=== PATIENT | female | born 1980 | race African-American/Black ===

== ENCOUNTER 2016-05-18 10:35 | Day surgery (SDC) | payer OTHER ==
[2016-05-16 15:53] VITALS: BMI 26.6
[2016-05-18] MEDS ORDERED: PROPOFOL 20 ML ONE ×2 (12:03)
[2016-05-18] MEDS ORDERED: LIDOCAINE HCL 2% (20ML MULTI-DOSE VIAL) NR ONE (12:03)
[2016-05-18] MEDS ORDERED: MIDAZOLAM HCL 2 MG/2 ML SINGLE DOSE VIAL ONE (12:03)
[2016-05-18] MEDS ORDERED: LIDOCAINE HCL 1%, 10 MG/ML (20ML VIAL) IJ ONE ×2 (12:41)
[2016-05-18] MEDS ORDERED: KETOROLAC TROMETHAMINE 30 MG/1 ML VIAL ONE (12:43)
[2016-05-18] MEDS ORDERED: ONDANSETRON 4 MG/2 ML VIAL IVPUSH PRN (12:59)
[2016-05-18] MEDS ORDERED: oxyCODONE HCL 5 MG TABLET PO PRN (12:59)
[2016-05-18] MEDS ORDERED: ACETAMINOPHEN 1000 MG/100 ML VIAL (NON FORMULARY) IVPB PRN (13:00)
[2016-05-18] MEDS ORDERED: LACTATED RINGERS SOLUTION 1,000 ML IV SCH (13:00)
[2016-05-18 14:14] VITALS: TEMP 98
[2016-05-18 15:52] VITALS: BP 111/80; PULSE 64
--- NOTE | 2016-05-19 09:23 | OP ---
DATE OF OPERATION: 05/18/2016 PREOPERATIVE DIAGNOSIS: Left breast mass. POSTOPERATIVE DIAGNOSIS: Left breast mass. PROCEDURE: Left breast excision of mass. SURGEON: Manju Phillips MD ANESTHESIA: Local and IV sedation. ESTIMATED BLOOD LOSS: Minimal. COMPLICATIONS: None. DISPOSITION: Stable. INDICATIONS FOR PROCEDURE: Patient was brought in with a palpable mass in the left breast 8:30 location 2cm from for the nipple of which she had a needle biopsy last year, and it was benign. However, because of increasing in size, she was worried, and we decided to go ahead and excise this. The procedure was discussed with all the questions answered. PROCEDURE IN DETAIL: Patient was brought to [facility], taken into the operating room, and after IV sedation, the left breast was prepped in the usual sterile fashion. The area in the lower inner left breast was anesthetized with 1% lidocaine without epinephrine. A periareolar incision was made in the inner left breast, and the palpable mass was excised en bloc and sent to Pathology for permanent section. Hemostasis was assured with electrocautery. The parenchyma was approximated with interrupted 2-0 Vicryl. Skin approximated with interrupted 3-0 Vicryl and running 4-0 Prolene. A sterile dressing with Tegaderm and 4x4s was applied. She tolerated the procedure well and was taken to the recovery room in good condition. Esther [id number] MTDD
--- NOTE | 2016-05-22 16:08 | PATH ---
Surgical Pathology Report Patient Name: BETH DAVILA [facility]. Rec. #: [id number] /Age/Gender: 1980 (Age: 35) / F Account: [id number] Location: [facility] Taken: 05/18/2016 Received: 05/18/2016 Reported: 05/22/2016 Physicians: Manju Phillips M.D. Specimen(s) Received LEFT BREAST MASS EXCISION Clinical History Palpable mass, probably benign Final Diagnosis Breast, left, mass, excision: phyllodes tumor, borderline (LOW GRADE). Tumor size: 2.0 cm. Mitotic rate: up to 3-4/10 HPF. Surgical resection margin: Tumor appears completely excised. Comment: The sections show a biphasic fibroepithelial proliferation with areas of stromal expansion with periglandular stromal condensation comprised of spindle shaped cells with mild to moderate cytological atypia. Mitotic rate is up to 3-4/10 HPF. Necrosis is not identified. The tumor appears completely excised. Electronically Signed Nura Pimentel M.D. Gross Description Received in formalin, labeled "left breast excision" is a 3.5 x 2.8 x 2.0 cm fernandez-yellow, irregular, unoriented portion of fibrofatty tissue. Sectioning reveals a 2.0 cm in greatest dimension fernandez, well circumscribed, rubbery mass. No areas of hemorrhage or necrosis are identified. The specimen is entirely and sequentially submitted in 7 cassettes. Time to fixation:<1h Total formalin fixation time:~ 8h /05/18/201605/18/2016
== END 2016-05-18 15:53 | disposition home or self-care (01) ==
LOC: JASU-SURG 10:35
PROVIDERS: ATTEND Surgery
PROC: 0HBU0ZX Excision of Left Breast, Open Approach, Diagnostic (ICD-10-PCS; principal; 2016-05-18 12:00)
DX: D48.62 Neoplasm of uncertain behavior of left breast (principal)
CPT/HCPCS: 84703; 88307-TC; 94760

== ENCOUNTER 2016-06-19 20:06 | Emergency (ER) | payer OTHER ==
[2016-06-19 20:16] VITALS: BP 118/57; PULSE 86; TEMP 98.1; BMI 26.6
[2016-06-19] MEDS ORDERED: predniSONE 20 MG TABLET (UD) PO ONE (20:50)
[2016-06-19] MEDS ORDERED: guaiFENesin/CODEINE 5 ML UNIT-DOSE CUPS PO ONE ×2 (20:50→20:55)
[2016-06-19] MEDS: ALBUTEROL SO4 2.5/IPRATROPIUM 0.5 INH SOL 3 ML VIAL.NEB. NEB SCH ×2 (20:52→21:11)
--- NOTE | 2016-06-19 20:56 | PDOC ---
History of Present Illness - General Chief Complaint: Respiratory Stated Complaint: Cough Time Seen by Provider: 06/19/16 20:17 History Source: Patient - History of Present Illness Timing/Duration: reports: week Associated Symptoms: reports: cough, shortness of breath, wheezing. denies: fever/chills Past History - Past Medical History Allergies/Adverse Reactions: Allergies Allergy/AdvReac Type Severity Reaction Status Date / Time procaine HCl [From Novocain] Allergy Unknown Verified 06/19/16 20:13 cherries Allergy Uncoded 06/19/16 20:13 Home Medications: Ambulatory Orders Albuterol Sulfate Inhaler - [Ventolin HFA Inhaler -] 1 - 2 inh PO Q4H #1 inhaler 06/19/16 Guaifenesin AC [Robitussin AC] 10 ml PO Q4H #118 ml MDD 60ml 06/19/16 Prednisone [Deltasone -] 40 mg PO DAILY #8 tablet 06/19/16 Anemia: No Asthma: No Cancer: No Cardiac Disorders: No CVA: No COPD: No CHF: No Dementia: No Diabetes: No GI Disorders: No Disorders: No HTN: No Hypercholesterolemia: No Liver Disease: No Seizures: No Thyroid Disease: No - Immunization History Immunization Up to Date: Yes - Psycho/Social/Smoking Cessation Hx Anxiety: No Suicidal Ideation: No Smoking History: Current every day smoker Have you smoked in the past 12 months: Yes Number of Cigarettes Smoked Daily: 3 Information on smoking cessation initiated: Yes 'Breaking Loose' booklet given: 06/19/16 Hx Alcohol Use: No Drug/Substance Use Hx: No Substance Use Type: Alcohol Review of Systems - Review of Systems Constitutional: No: Fever Respiratory: Yes: Cough, Shortness of Breath, Wheezing Cardiac (ROS): Yes: Chest Pain *Physical Exam - Vital Signs Last Vital Signs Temp Pulse Resp BP Pulse Ox 98.1 F 86 18 118/57 98 06/19/16 20:14 06/19/16 20:14 06/19/16 20:14 06/19/16 20:14 06/19/16 20:14 - Physical Exam General Appearance: Yes: Appropriately Dressed. No: Apparent Distress HEENT: positive: Normal ENT Inspection, Normal Voice. negative: Scleral Icterus (R), Scleral Icterus (L) Neck: positive: Supple. negative: Lymphadenopathy (R), Lymphadenopathy (L) Respiratory/Chest: positive: Lungs Clear, Normal Breath Sounds. negative: Respiratory Distress, Wheezing Cardiovascular: positive: Regular Rate, S1, S2 Integumentary: positive: Dry, Warm Neurologic: positive: Fully Oriented, Alert, Normal Mood/Affect Medical Decision Making - Medical Decision Making 06/19/16 20:51 36-year-old female history of asthma in childhood, states she's only had one flare in adulthood, does not have any medication at home, currently smokes, here with non-productive cough with pleuritic chest pain 1 week. Over the past several days, developed shortness of breath and tightness similar to her asthma. No fever or chills. Patient well-appearing and stable in ED with clear chest/lungs. Nebs and steroids in progress. Anticipate discharge with prednisone burst and refill of asthma pump 06/19/16 20:56 06/19/16 21:41 Patient improved with neb treatment. Lung remains clear. Discharge with Pred burst and refill of alb pump *DC/Admit/Observation/Transfer Diagnosis at time of Disposition: Asthma attack URI (upper respiratory infection) Qualifiers: URI type: unspecified viral URI Qualified Code(s): J06.9 - Acute upper respiratory infection, unspecified - Discharge Dispostion Disposition: HOME Condition at time of disposition: Improved - Prescriptions Prescriptions: Prednisone [Deltasone -] 40 mg PO DAILY #8 tablet Guaifenesin AC [Robitussin AC] 10 ml PO Q4H #118 ml MDD 60ml Albuterol Sulfate Inhaler - [Ventolin HFA Inhaler -] 1 - 2 inh PO Q4H #1 inhaler - Referrals Referrals: Karina Holloway [Primary Care Provider] - - Patient Instructions Printed Discharge Instructions: Asthma -- Adult, DI for Viral Upper Respiratory Infection -- Adult, Smoking Cessation Additional Instructions: Take medications as directed and follow-up with your PMD as needed
[2016-06-19] MEDS ORDERED: ALBUTEROL SO4 2.5/IPRATROPIUM 0.5 INH SOL 3 ML VIAL.NEB. NEB ONE (20:58)
[2016-06-19] MEDS ORDERED: predniSONE 20 MG TABLET (UD) ONE (20:58)
== END 2016-06-19 21:43 | disposition home or self-care (01) ==
LOC: JERFT 20:06
PROC: 3E0F7GC Introduction of Other Therapeutic Substance into Respiratory Tract, Via Natural or Artificial Opening (ICD-10-PCS; principal; 2016-06-19)
DX: J45.901 Unspecified asthma with (acute) exacerbation (principal); J06.9 Acute upper respiratory infection, unspecified
CPT/HCPCS: 94640; 99281-25

== ENCOUNTER 2016-08-01 21:50 | Emergency (ER) | payer OTHER ==
[2016-08-01 21:56] VITALS: BP 119/74; PULSE 93; TEMP 98.5; BMI 25.4
[2016-08-01] MEDS ORDERED: ALBUTEROL SO4 2.5/IPRATROPIUM 0.5 INH SOL 3 ML VIAL.NEB. NEB ONE (22:18)
[2016-08-01] MEDS ORDERED: predniSONE 20 MG TABLET (UD) ONE (22:18)
[2016-08-01] MEDS ORDERED: predniSONE 20 MG TABLET (UD) PO ONE (22:37)
--- NOTE | 2016-08-01 22:37 | PDOC ---
History of Present Illness - General Chief Complaint: Respiratory Stated Complaint: DIFF BREATHING Time Seen by Provider: 08/01/16 22:06 History Source: Patient - History of Present Illness Associated Symptoms: reports: cough, shortness of breath. denies: fever/chills Past History - Past Medical History Allergies/Adverse Reactions: Allergies Allergy/AdvReac Type Severity Reaction Status Date / Time procaine HCl [From Novocain] Allergy Unknown Verified 08/01/16 21:56 cherries Allergy Uncoded 08/01/16 21:56 Home Medications: Ambulatory Orders Albuterol Sulfate Inhaler - [Ventolin HFA Inhaler -] 1 - 2 inh PO Q4H #1 inhaler 08/01/16 Prednisone [Deltasone -] 40 mg PO DAILY #8 tablet 08/01/16 Anemia: No Asthma: Yes Cancer: No Cardiac Disorders: No CVA: No COPD: No CHF: No Dementia: No Diabetes: No GI Disorders: No Disorders: No HTN: No Hypercholesterolemia: No Liver Disease: No Seizures: No Thyroid Disease: No - Immunization History Immunization Up to Date: Yes - Psycho/Social/Smoking Cessation Hx Anxiety: No Suicidal Ideation: No Smoking History: Current every day smoker Have you smoked in the past 12 months: Yes Number of Cigarettes Smoked Daily: 3 Information on smoking cessation initiated: No 'Breaking Loose' booklet given: 06/19/16 Hx Alcohol Use: No Drug/Substance Use Hx: No Substance Use Type: Alcohol Review of Systems - Review of Systems Constitutional: No: Chills, Fever Respiratory: Yes: Cough, Shortness of Breath, Wheezing *Physical Exam - Vital Signs Last Vital Signs Temp Pulse Resp BP Pulse Ox 98.5 F 93 H 18 119/74 99 08/01/16 21:53 08/01/16 21:53 08/01/16 21:53 08/01/16 21:53 08/01/16 21:53 - Physical Exam General Appearance: Yes: Appropriately Dressed. No: Apparent Distress HEENT: positive: Normal Voice Neck: positive: Supple Respiratory/Chest: positive: Lungs Clear, Normal Breath Sounds. negative: Respiratory Distress, Wheezing Cardiovascular: positive: Regular Rate, S1, S2 Integumentary: positive: Dry, Warm Neurologic: positive: Fully Oriented, Alert, Normal Mood/Affect Medical Decision Making - Medical Decision Making 08/01/16 22:34 36-year-old female history of asthma, only uses albuterol pump at home. No admissions or intubations, here with shortness of breath and wheezing in the setting of nonproductive cough x several days. States pump is not working. No fever or chills. Patient well-appearing and stable with clear chest/lungs on exam. Nebs and prednisone in progress, will reassess 08/01/16 22:43 Pt improved s/p 1 neb tx, decline additional tx. Stable for dc w/ pred burst 08/01/16 22:43 *DC/Admit/Observation/Transfer Diagnosis at time of Disposition: Asthma attack - Discharge Dispostion Disposition: HOME Condition at time of disposition: Improved - Prescriptions Prescriptions: Prednisone [Deltasone -] 40 mg PO DAILY #8 tablet Albuterol Sulfate Inhaler - [Ventolin HFA Inhaler -] 1 - 2 inh PO Q4H #1 inhaler - Patient Instructions Printed Discharge Instructions: Asthma -- Adult Additional Instructions: Take prednisone as directed and follow up with your PMD
[2016-08-01] MEDS: ALBUTEROL SO4 2.5/IPRATROPIUM 0.5 INH SOL 3 ML VIAL.NEB. NEB SCH ×3 (22:40→22:47)
== END 2016-08-01 22:49 | disposition home or self-care (01) ==
LOC: JERFT 21:50
DX: J45.901 Unspecified asthma with (acute) exacerbation (principal); F17.210 Nicotine dependence, cigarettes, uncomplicated
CPT/HCPCS: 99281-25

== ENCOUNTER 2017-06-06 14:55 | Emergency (ER) | payer OTHER ==
[2017-06-06 15:44] VITALS: BP 105/66; PULSE 95; TEMP 99.1; BMI 25.0
--- NOTE | 2017-06-06 15:49 | PDOC ---
Rapid Medical Evaluation Chief Complaint: Cold Symptoms Time Seen by Provider: 06/06/17 15:46 Medical Evaluation: Allergies Allergy/AdvReac Type Severity Reaction Status Date / Time procaine HCl [From Novocain] Allergy Unknown Verified 06/06/17 15:37 cherries Allergy Uncoded 06/06/17 15:37 Vital Signs Temp Pulse Resp BP Pulse Ox 99.1 F 95 H 18 105/66 98 06/06/17 15:38 06/06/17 15:38 06/06/17 15:38 06/06/17 15:38 06/06/17 15:38 06/06/17 15:47 pt c/o: cough, told recent pneumonia at [facility] but did not stay or receive abx, pt c/o myalgia , cough, and weakness Pt on brief exam: vss, lcta Pt ordered for : cxr pa/lat pt to proceed to the ED:
[2017-06-06] MEDS ORDERED: IBUPROFEN 400 MG TABLET (FP) PO ONE ×2 (16:29→16:31)
--- NOTE | 2017-06-06 16:32 | PDOC ---
History of Present Illness - General Chief Complaint: Cold Symptoms Stated Complaint: FLU LIKE SYMPTOMS Time Seen by Provider: 06/06/17 15:46 History Source: Patient Exam Limitations: No Limitations - History of Present Illness Initial Comments: 06/06/17 16:28 37 yr female with sudden onset body aches fever headache started this AM. pt has cough history of asthma. neg abd pain nvd. Past History - Past Medical History Allergies/Adverse Reactions: Allergies Allergy/AdvReac Type Severity Reaction Status Date / Time procaine HCl [From Novocain] Allergy Unknown Verified 06/06/17 15:37 cherries Allergy Uncoded 06/06/17 15:37 Home Medications: Ambulatory Orders Oseltamivir Phosphate [Tamiflu -] 75 mg PO BID #10 capsule 06/06/17 Anemia: No Asthma: Yes Cancer: No Cardiac Disorders: No CVA: No COPD: No CHF: No DVT: No Dementia: No Diabetes: No GI Disorders: No Disorders: No HTN: No Hypercholesterolemia: No Liver Disease: No Seizures: No Thyroid Disease: No - Immunization History Immunization Up to Date: Yes - Suicide/Smoking/Psychosocial Hx Smoking History: Current some day smoker Have you smoked in the past 12 months: Yes Number of Cigarettes Smoked Daily: 3 Information on smoking cessation initiated: No 'Breaking Loose' booklet given: 06/19/16 Hx Alcohol Use: No Drug/Substance Use Hx: No Substance Use Type: Alcohol *Physical Exam - Vital Signs Last Vital Signs Temp Pulse Resp BP Pulse Ox 99.1 F 95 H 18 105/66 98 06/06/17 15:38 06/06/17 15:38 06/06/17 15:38 06/06/17 15:38 06/06/17 15:38 - Physical Exam General Appearance: Yes: Nourished, Appropriately Dressed HEENT: positive: EOMI, [place] Neck: positive: Supple. negative: Tender Respiratory/Chest: positive: Lungs Clear, Normal Breath Sounds. negative: Chest Tender Cardiovascular: positive: Regular Rhythm, Regular Rate Gastrointestinal/Abdominal: positive: Normal Bowel Sounds, Soft Lymphatic: negative: Adenopathy Musculoskeletal: positive: Normal Inspection Extremity: positive: Normal Capillary Refill, Normal Inspection, Normal Range of Motion Integumentary: positive: Normal Color, Dry, Warm Neurologic: positive: Fully Oriented, Alert, Normal Mood/Affect, Normal Response , Motor Strength 5/5 Medical Decision Making - Medical Decision Making 06/06/17 16:29 cc: cough , body aches fever started today cxr done in [facility] will give motrin now dc with flu like illness will place on tamiflu 06/06/17 16:29 *DC/Admit/Observation/Transfer Diagnosis at time of Disposition: Influenza-like illness - Prescriptions Prescriptions: Oseltamivir Phosphate [Tamiflu -] 75 mg PO BID #10 capsule - Referrals Referrals: Karina Holloway [Primary Care Provider] - - Patient Instructions Additional Instructions: drink pleanty of fluids to stay hydrated ice pops, jello, soup however you must force your self to drink and stay hydrated take ibuprofen 800mg every 8hrs for fever/body aches take tylenol 650mg every 4-6hrs for fever/body aches take tamiflu as directed for 5 days, this does not sure the FLU but can shorten the days you are ill Return to ER for any worsening symptoms - Post Discharge Activity Forms/Work/School Notes: Back to Work
== END 2017-06-06 16:34 | disposition home or self-care (01) ==
LOC: JERFT 14:55
DX: J11.1 Influenza due to unidentified influenza virus with other respiratory manifestations (principal); F17.210 Nicotine dependence, cigarettes, uncomplicated
CPT/HCPCS: 71046-TC-FY; 99281-25